=== PATIENT | female | born 1995 | race American Indian/Alaskan Native ===

== ENCOUNTER 2020-04-21 07:23 | Inpatient (IN) | payer MEDICAID ==
[2020-04-21] MEDS ORDERED: SODIUM CHLORIDE 0.9% 1000 ML 1,000 ML IV ONE ×3 (07:29→11:17)
--- NOTE | 2020-04-21 07:32 | Event Note ---
ED Screening Note Date of service: 04/21/20 Time: 07:31 ED Screening Note: 25-year-old female with no significant past medical history presents to the ER today with complaints of chest pain abdominal pain. She states that the pain started last week. She went to [facility] ER where they did CT scans, chest x-rays, EKG and blood work but nothing acute was found. Patient states that her pain worsened yesterday. This initial assessment/diagnostic orders/clinical plan/treatment(s) is/are subject to change based on patients health status, clinical progression and re- assessment by fellow clinical providers in the ED. Further treatment and workup at subsequent clinical providers discretion. Patient/guardian urged not to elope from the ED as their condition may be serious if not clinically assessed and managed. Initial orders include: Abdominal pain order set including chest x-ray, EKG and a troponin
[2020-04-21 08:07] LABS: Alanine Aminotransferase 25 units/L (7-56); Albumin 4.1 g/dL (3.9-5); BUN/Creatinine Ratio 11; Blood Urea Nitrogen 10 mg/dL (7-17); Calcium 8.8 mg/dL (8.4-10.2); Hemolysis Index 29
[2020-04-21 08:08] LABS: Bilirubin,Direct < 0.2 mg/dL (0-0.2)
[2020-04-21 08:13] LABS: Hematocrit 39.6 % (30.3-42.9); Hemoglobin 12.8 gm/dl (10.1-14.3); Mean Corpuscular HGB Conc 32 % (30-34); Mean Corpuscular Volume 87 fl (79-97); Platelet Count 269 K/mm3 (140-440); Red Blood Count 4.55 M/mm3 (3.65-5.03); Red Cell Distribution Width 14.3 % (13.2-15.2)
--- NOTE | 2020-04-21 09:18 | XRay Report ---
CHEST 1 VIEW 04/21/2020 9:05 AM INDICATION / CLINICAL INFORMATION: Chest pain/abd pain. COMPARISON: None available. FINDINGS: SUPPORT DEVICES: None. HEART / MEDIASTINUM: No significant abnormality. LUNGS / PLEURA: Clear lungs. No significant pleural effusion. No pneumothorax. ADDITIONAL FINDINGS: No significant additional findings. IMPRESSION: 1. No acute abnormality of the chest. Signer Name: Jairo Sweeney MD Signed: 04/21/2020 9:14 AM Workstation Name: [id number]
[2020-04-21] MEDS ORDERED: PANTOPRAZOLE 40 MG INJ IV ONE (09:40)
[2020-04-21] MEDS ORDERED: PIPERACILLIN/TAZOBACTAM 3.375 3.375 GM/50 ML BAG IV ONE (09:40)
[2020-04-21] MEDS ORDERED: MORPHINE 2 MG/1 ML INJ IV ONE ×3 (09:41→21:10)
[2020-04-21] MEDS ORDERED: ONDANSETRON 4 MG/2 ML INJ IV ONE (09:41)
[2020-04-21 10:03] LABS: Total Cells Counted 100
[2020-04-21 10:04] LABS: Platelet Estimate Consistent w Auto; RBC Morphology Normal
--- NOTE | 2020-04-21 10:26 | Cat Scan Report ---
CT abdomen pelvis w con INDICATION: MAIN. COMPARISON: None TECHNIQUE: Abdominal and pelvic CT exam performed. All CT scans at this location are performed using CT dose reduction for ALARA by means of automated exposure control. FINDINGS: CT ABDOMEN and PELVIS: Lung Bases: No significant abnormality. Liver: No significant abnormality. Biliary: No significant abnormality. Spleen: No significant abnormality. Pancreas: No significant abnormality. Adrenals: No significant abnormality. Kidneys: 2 mm left upper pole renal stone. No significant abnormality. Lymphatics: No lymphadenopathy. Vasculature: No significant abnormality. Bowel: There is mild short segment of bowel wall thickening involving the sigmoid colon and distal de scending colon. There is also a small short segment of small bowel bowel wall thickening seen within the pelvis (image 114 series 2.) Small quantity of fat stranding is seen within the pelvis. No perfor ation. No organized collection. Appendix is not visualized. Pelvis: Intrauterine device is in place. No significant abnormality. Osseous Structures: No aggressive osseous lesion. There is mild asymmetric sclerosis involving the ri ght iliac endplate of the sacroiliac joint on image 73 of series 601. Additional Findings: None IMPRESSION: 1. There is short segment bowel wall thickening involving the sigmoid colon and small bowel concernin g for enteritis/colitis. Given the skip lesions, Crohn's disease is a consideration. Additionally the re is mild right sacroiliitis which could be related to enteropathic sacroiliitis. Signer Name: Topher Teixeira MD Signed: 04/21/2020 10:21 AM Workstation Name: [id number]
--- NOTE | 2020-04-21 11:07 | Emergency Department Report ---
ED General Adult HPI - General Chief complaint: Abdominal Pain Stated complaint: CHEST PAIN/ABD PAIN Time Seen by Provider: 04/21/20 09:21 Source: patient Mode of arrival: Ambulatory Limitations: No Limitations - History of Present Illness Initial comments: This is a 25-year-old female with no prior GI or surgical history. She states that she has been having abdominal pain which is now diffuse since Wednesday. She is a bit of a poor historian and appears quite uncomfortable. She appears to be stating that the abdominal pain may have been more right-sided initially. She denies back pain. She denies diarrhea or signs of GI bleeding. She thinks that she might have had a chill but no fever. Patient states that she went to [facility] on Wednesday. She had an emergency department evaluation to include CT examination of her abdomen pelvis. She states that nothing abnormal was found. I have requested these records. Right after my initial assessment, an expedited CT of the abdomen and pelvis was ordered but the patient was significantly tender and tachycardic. Patient was given IV fluids Protonix and prophylactic antibiotics. See CT report for findings. -: Gradual, days(s) Location: abdomen Radiation: non-radiation Severity scale (0 -10): 10 Quality: aching Consistency: constant Improves with: none Worsens with: none Associated Symptoms: denies other symptoms (See HPI) Treatments Prior to Arrival: none - Related Data Previous Rx's Medication Instructions Recorded Last Taken Type Nitrofurantoin Spink/M-Cryst 100 mg PO Q12HR #14 capsule 10/18/19 Unknown Rx [Macrobid CAP] Phenazopyridine [Pyridium] 100 mg PO TID #6 tab 10/18/19 Unknown Rx Allergies Allergy/AdvReac Type Severity Reaction Status Date / Time No Known Allergies Allergy Unverified 10/18/19 09:37 ED Review of Systems ROS: Stated complaint: CHEST PAIN/ABD PAIN Other details as noted in HPI Constitutional: chills (Possible). denies: fever Eyes: denies: eye pain, vision change ENT: denies: ear pain, throat pain Respiratory: denies: cough, shortness of breath Cardiovascular: denies: chest pain, palpitations Endocrine: no symptoms reported Gastrointestinal: abdominal pain. denies: vomiting, diarrhea Genitourinary: denies: urgency, dysuria Musculoskeletal: denies: back pain, arthralgia Skin: denies: rash, lesions Neurological: denies: headache, weakness, paresthesias Psychiatric: denies: anxiety, depression Hematological/Lymphatic: denies: easy bleeding, easy bruising ED Past Medical Hx - Past Medical History Previous Medical History?: No - Surgical History Past Surgical History?: No - Social History Smoking Status: Never Smoker Substance Use Type: None - Medications Home Medications: Home Medications Medication Instructions Recorded Confirmed Last Taken Type Nitrofurantoin Spink/M-Cryst 100 mg PO Q12HR #14 capsule 10/18/19 Unknown Rx [Macrobid CAP] Phenazopyridine [Pyridium] 100 mg PO TID #6 tab 10/18/19 Unknown Rx ED Physical Exam - General Limitations: Physical Limitation General appearance: alert, in distress - Head Head exam: Present: atraumatic, normocephalic - Eye Eye exam: Present: normal appearance. Absent: scleral icterus - ENT ENT exam: Present: mucous membranes moist - Neck Neck exam: Present: normal inspection - Respiratory Respiratory exam: Present: normal lung sounds bilaterally. Absent: respiratory distress - Cardiovascular Cardiovascular Exam: Present: regular rate, tachycardia. Absent: systolic murmur, diastolic murmur, rubs, gallop - GI/Abdominal GI/Abdominal exam: Present: soft, distended, tenderness, guarding, rigid (Somewhat firm but not frankly rigid), normal bowel sounds. Absent: rebound (Difficult to assess), mass - Extremities Exam Extremities exam: Present: normal inspection - Back Exam Back exam: Present: normal inspection - Neurological Exam Neurological exam: Present: alert, oriented X3, CN II-XII intact. Absent: motor sensory deficit (As tested) - Psychiatric Psychiatric exam: Present: normal affect, normal mood - Skin Skin exam: Present: warm, dry, intact, normal color. Absent: rash ED Course Vital Signs 04/21/20 04/21/20 04/21/20 07:26 09:05 09:10 Temperature 97.2 F L Pulse Rate 118 H 108 H 111 H Respiratory 20 31 H 26 H Rate Blood Pressure 126/83 112/66 Blood Pressure 112/66 [Left] O2 Sat by Pulse 98 99 100 Oximetry 04/21/20 04/21/20 04/21/20 10:05 11:00 12:01 Temperature Pulse Rate 122 H 110 H 122 H Respiratory 29 H 29 H 25 H Rate Blood Pressure 127/70 127/70 127/70 Blood Pressure [Left] O2 Sat by Pulse 97 100 100 Oximetry - Reevaluation(s) Reevaluation #1: Patient received IV fluids and analgesia. Her CT showed enteritis and sacroiliitis. I suppose this most consistent with inflammatory bowel disease. Radiologist mentions Crohn's. She was also found to have significant pyuria. Initial antibiotic coverage was given previous CT (Zosyn). Blood cultures and urine cultures were obtained. I added Flagyl. Consult to GI. Case discussed with Dr. Mendes who was in the hospital and stated that he would see the patient. I went over the findings with hospitalist Dr. Flood who will be admitting the patient for further care and evaluation. 04/21/20 12:23 ED Medical Decision Making - Lab Data Result diagrams: 04/21/20 11:35 04/21/20 07:32 Laboratory Results - last 24 hr 04/21/20 04/21/20 04/21/20 07:32 07:32 07:32 WBC 14.3 H RBC 4.55 Hgb 12.8 Hct 39.6 MCV 87 MCH 28 MCHC 32 RDW 14.3 Plt Count 269 Add Manual Diff Complete Total Counted 100 Seg Neuts % (Manual) 72.0 H Band Neutrophils % 7.0 Lymphocytes % (Manual) 17.0 Monocytes % (Manual) 4.0 Nucleated RBC % Not Reportable Seg Neutrophils # Man 10.3 H Band Neutrophils # 1.0 Lymphocytes # (Manual) 2.4 Abs React Lymphs (Man) 0.0 Monocytes # (Manual) 0.6 Eosinophils # (Manual) 0.0 Basophils # (Manual) 0.0 Metamyelocytes # 0.0 Myelocytes # 0.0 Promyelocytes # 0.0 Blast Cells # 0.0 WBC Morphology Not Reportable Hypersegmented Neuts Not Reportable Hyposegmented Neuts Not Reportable Hypogranular Neuts Not Reportable Smudge Cells Not Reportable Toxic Granulation Not Reportable Toxic Vacuolation Not Reportable Dohle Bodies Not Reportable Pelger-Huet Anomaly Not Reportable Maty Rods Not Reportable Platelet Estimate Consistent w auto Clumped Platelets Not Reportable Plt Clumps, EDTA Not Reportable Large Platelets Not Reportable Giant Platelets Not Reportable Platelet Satelliting Not Reportable Plt Morphology Comment Not Reportable RBC Morphology Normal Dimorphic RBCs Not Reportable Polychromasia Not Reportable Hypochromasia Not Reportable Poikilocytosis Not Reportable Anisocytosis Not Reportable Microcytosis Not Reportable Macrocytosis Not Reportable Spherocytes Not Reportable Pappenheimer Bodies Not Reportable Sickle Cells Not Reportable Target Cells Not Reportable Tear Drop Cells Not Reportable Ovalocytes Not Reportable Helmet Cells Not Reportable [place] Bodies Not Reportable [place] Rings Not Reportable [place] Cells Not Reportable Bite Cells Not Reportable Crenated Cell Not Reportable Elliptocytes Not Reportable Acanthocytes (Spur) Not Reportable Rouleaux Not Reportable Hemoglobin C Crystals Not Reportable Schistocytes Not Reportable Malaria parasites Not Reportable Matthew Bodies Not Reportable Hem Pathologist Commnt No Sodium 136 L Potassium 3.7 Chloride 98.3 Carbon Dioxide 24 Anion Gap 17 BUN 10 Creatinine 0.9 Estimated GFR > 60 BUN/Creatinine Ratio 11 Glucose 94 Calcium 8.8 Total Bilirubin 0.70 Direct Bilirubin < 0.2 AST 27 ALT 25 Alkaline Phosphatase 75 Troponin T < 0.010 Total Protein 8.0 Albumin 4.1 Albumin/Globulin Ratio 1.1 Lipase 13 HCG, Qual 04/21/20 07:37 WBC RBC Hgb Hct MCV MCH MCHC RDW Plt Count Add Manual Diff Total Counted Seg Neuts % (Manual) Band Neutrophils % Lymphocytes % (Manual) Monocytes % (Manual) Nucleated RBC % Seg Neutrophils # Man Band Neutrophils # Lymphocytes # (Manual) Abs React Lymphs (Man) Monocytes # (Manual) Eosinophils # (Manual) Basophils # (Manual) Metamyelocytes # Myelocytes # Promyelocytes # Blast Cells # WBC Morphology Hypersegmented Neuts Hyposegmented Neuts Hypogranular Neuts Smudge Cells Toxic Granulation Toxic Vacuolation Dohle Bodies Pelger-Huet Anomaly Maty Rods Platelet Estimate Clumped Platelets Plt Clumps, EDTA Large Platelets Giant Platelets Platelet Satelliting Plt Morphology Comment RBC Morphology Dimorphic RBCs Polychromasia Hypochromasia Poikilocytosis Anisocytosis Microcytosis Macrocytosis Spherocytes Pappenheimer Bodies Sickle Cells Target Cells Tear Drop Cells Ovalocytes Helmet Cells [place] Bodies [place] Rings Lul Cells Bite Cells Crenated Cell Elliptocytes Acanthocytes (Spur) Rouleaux Hemoglobin C Crystals Schistocytes Malaria parasites Matthew Bodies Hem Pathologist Commnt Sodium Potassium Chloride Carbon Dioxide Anion Gap BUN Creatinine Estimated GFR BUN/Creatinine Ratio Glucose Calcium Total Bilirubin Direct Bilirubin AST ALT Alkaline Phosphatase Troponin T Total Protein Albumin Albumin/Globulin Ratio Lipase HCG, Qual Negative Laboratory Results - last 24 hr 04/21/20 04/21/20 04/21/20 07:32 07:32 07:32 WBC 14.3 H RBC 4.55 Hgb 12.8 Hct 39.6 MCV 87 MCH 28 MCHC 32 RDW 14.3 Plt Count 269 Add Manual Diff Complete Total Counted 100 Seg Neuts % (Manual) 72.0 H Band Neutrophils % 7.0 Lymphocytes % (Manual) 17.0 Monocytes % (Manual) 4.0 Nucleated RBC % Not Reportable Seg Neutrophils # Man 10.3 H Band Neutrophils # 1.0 Lymphocytes # (Manual) 2.4 Abs React Lymphs (Man) 0.0 Monocytes # (Manual) 0.6 Eosinophils # (Manual) 0.0 Basophils # (Manual) 0.0 Metamyelocytes # 0.0 Myelocytes # 0.0 Promyelocytes # 0.0 Blast Cells # 0.0 WBC Morphology Not Reportable Hypersegmented Neuts Not Reportable Hyposegmented Neuts Not Reportable Hypogranular Neuts Not Reportable Smudge Cells Not Reportable Toxic Granulation Not Reportable Toxic Vacuolation Not Reportable Dohle Bodies Not Reportable Pelger-Huet Anomaly Not Reportable Maty Rods Not Reportable Platelet Estimate Consistent w auto Clumped Platelets Not Reportable Plt Clumps, EDTA Not Reportable Large Platelets Not Reportable Giant Platelets Not Reportable Platelet Satelliting Not Reportable Plt Morphology Comment Not Reportable RBC Morphology Normal Dimorphic RBCs Not Reportable Polychromasia Not Reportable Hypochromasia Not Reportable Poikilocytosis Not Reportable Anisocytosis Not Reportable Microcytosis Not Reportable Macrocytosis Not Reportable Spherocytes Not Reportable Pappenheimer Bodies Not Reportable Sickle Cells Not Reportable Target Cells Not Reportable Tear Drop Cells Not Reportable Ovalocytes Not Reportable Helmet Cells Not Reportable [place] Bodies Not Reportable [place] Rings Not Reportable Lul Cells Not Reportable Bite Cells Not Reportable Crenated Cell Not Reportable Elliptocytes Not Reportable Acanthocytes (Spur) Not Reportable Rouleaux Not Reportable Hemoglobin C Crystals Not Reportable Schistocytes Not Reportable Malaria parasites Not Reportable Matthew Bodies Not Reportable Hem Pathologist Commnt No Sodium 136 L Potassium 3.7 Chloride 98.3 Carbon Dioxide 24 Anion Gap 17 BUN 10 Creatinine 0.9 Estimated GFR > 60 BUN/Creatinine Ratio 11 Glucose 94 Calcium 8.8 Total Bilirubin 0.70 Direct Bilirubin < 0.2 AST 27 ALT 25 Alkaline Phosphatase 75 Troponin T < 0.010 Total Protein 8.0 Albumin 4.1 Albumin/Globulin Ratio 1.1 Lipase 13 HCG, Qual Urine Color Urine Turbidity Urine pH Ur Specific [place] Urine Protein Urine Glucose (UA) Urine Ketones Urine Blood Urine Nitrite Urine Bilirubin Urine Urobilinogen Ur Leukocyte Esterase Urine WBC (Auto) Urine RBC (Auto) U Epithel Cells (Auto) Urine Mucus 04/21/20 04/21/20 07:37 Unknown WBC RBC Hgb Hct MCV MCH MCHC RDW Plt Count Add Manual Diff Total Counted Seg Neuts % (Manual) Band Neutrophils % Lymphocytes % (Manual) Monocytes % (Manual) Nucleated RBC % Seg Neutrophils # Man Band Neutrophils # Lymphocytes # (Manual) Abs React Lymphs (Man) Monocytes # (Manual) Eosinophils # (Manual) Basophils # (Manual) Metamyelocytes # Myelocytes # Promyelocytes # Blast Cells # WBC Morphology Hypersegmented Neuts Hyposegmented Neuts Hypogranular Neuts Smudge Cells Toxic Granulation Toxic Vacuolation Dohle Bodies Pelger-Huet Anomaly Maty Rods Platelet Estimate Clumped Platelets Plt Clumps, EDTA Large Platelets Giant Platelets Platelet Satelliting Plt Morphology Comment RBC Morphology Dimorphic RBCs Polychromasia Hypochromasia Poikilocytosis Anisocytosis Microcytosis Macrocytosis Spherocytes Pappenheimer Bodies Sickle Cells Target Cells Tear Drop Cells Ovalocytes Helmet Cells [place] Bodies [place] Rings Lul Cells Bite Cells Crenated Cell Elliptocytes Acanthocytes (Spur) Rouleaux Hemoglobin C Crystals Schistocytes Malaria parasites Matthew Bodies Hem Pathologist Commnt Sodium Potassium Chloride Carbon Dioxide Anion Gap BUN Creatinine Estimated GFR BUN/Creatinine Ratio Glucose Calcium Total Bilirubin Direct Bilirubin AST ALT Alkaline Phosphatase Troponin T Total Protein Albumin Albumin/Globulin Ratio Lipase HCG, Qual Negative Urine Color Yellow Urine Turbidity Slightly-cloudy Urine pH 6.0 Ur Specific [place] 1.034 H Urine Protein <15 mg/dl Urine Glucose (UA) Neg Urine Ketones Neg Urine Blood Sm Urine Nitrite Neg Urine Bilirubin Neg Urine Urobilinogen < 2.0 Ur Leukocyte Esterase Lg Urine WBC (Auto) > 182.0 H Urine RBC (Auto) 7.0 U Epithel Cells (Auto) 2.0 Urine Mucus Few - EKG Data -: EKG Interpreted by Me EKG shows normal: sinus rhythm, axis, intervals, QRS complexes, ST-T waves Rate: tachycardia - EKG Data Interpretation: nonspecific ST-T wave janet - Radiology Data Radiology results: image reviewed interpreted by me: Patient: CARLA PEREZ MR#: [id number] : 1995 Acct:[id number] Age/Sex: 25 / F ADM Date: 04/21/20 Loc: ED Attending Dr: Ordering Physician: SHERRELL SONG MD Date of Service: 04/21/20 Procedure(s): CT abdomen pelvis w con Accession Number(s): [id number] cc: SHERRELL SONG MD CT abdomen pelvis w con INDICATION: MAIN. COMPARISON: None TECHNIQUE: Abdominal and pelvic CT exam performed. All CT scans at this location are performed using CT dose reduction for ALARA by means of automated exposure control. FINDINGS: CT ABDOMEN and PELVIS: Lung Bases: No significant abnormality. Liver: No significant abnormality. Biliary: No significant abnormality. Spleen: No significant abnormality. Pancreas: No significant abnormality. Adrenals: No significant abnormality. Kidneys: 2 mm left upper pole renal stone. No significant abnormality. Lymphatics: No lymphadenopathy. Vasculature: No significant abnormality. Bowel: There is mild short segment of bowel wall thickening involving the sigmoid colon and distal descending colon. There is also a small short segment of small bowel bowel wall thickening seen within the pelvis (image 114 series 2.) Small quantity of fat stranding is seen within the pelvis. No perforation. No organized collection. Appendix is not visualized. Pelvis: Intrauterine device is in place. No significant abnormality. Osseous Structures: No aggressive osseous lesion. There is mild asymmetric sclerosis involving the right iliac endplate of the sacroiliac joint on image 73 of series 601. Additional Findings: None IMPRESSION: 1. There is short segment bowel wall thickening involving the sigmoid colon and small bowel concerning for enteritis/colitis. Given the skip lesions, Crohn's disease is a consideration. Additionally there is mild right sacroiliitis which could be related to enteropathic sacroiliitis. CT abdomen pelvis w con INDICATION: MAIN. COMPARISON: None TECHNIQUE: Abdominal and pelvic CT exam performed. All CT scans at this location are performed using CT dose reduction for ALARA by means of automated exposure control. FINDINGS: CT ABDOMEN and PELVIS: Lung Bases: No significant abnormality. Liver: No significant abnormality. Biliary: No significant abnormality. Spleen: No significant abnormality. Pancreas: No significant abnormality. Adrenals: No significant abnormality. Kidneys: 2 mm left upper pole renal stone. No significant abnormality. Lymphatics: No lymphadenopathy. Vasculature: No significant abnormality. Bowel: There is mild short segment of bowel wall thickening involving the sigmoid colon and distal descending colon. There is also a small short segment of small bowel bowel wall thickening seen within the pelvis (image 114 series 2.) Small quantity of fat stranding is seen within the pelvis. No perforation. No organized collection. Appendix is not visualized. Pelvis: Intrauterine device is in place. No significant abnormality. Osseous Structures: No aggressive osseous lesion. There is mild asymmetric sclerosis involving the right iliac endplate of the sacroiliac joint on image 73 of series 601. Additional Findings: None IMPRESSION: 1. There is short segment bowel wall thickening involving the sigmoid colon and small bowel concerning for enteritis/colitis. Given the skip lesions, Crohn's disease is a consideration. Additionally there is mild right sacroiliitis which could be related to enteropathic sacroiliitis. Signer Name: Topher Teixeira MD Signed: 04/21/2020 10:21 AM Workstation Name: [id number] Chest x-ray no acute process Critical care attestation.: If time is entered above; I have spent that time in minutes in the direct care of this critically ill patient, excluding procedure time. ED Disposition Clinical Impression: Enteritis, Sacroiliitis, Tachycardia Abdominal pain Qualifiers: Abdominal location: generalized Qualified Code(s): R10.84 - Generalized abdominal pain UTI (urinary tract infection) Qualifiers: Urinary tract infection type: site unspecified Hematuria presence: without hematuria Qualified Code(s): N39.0 - Urinary tract infection, site not specified Disposition: OP ADMIT IP TO THIS HOSP Is pt being admited?: Yes Does the pt Need Aspirin: No Condition: Stable Instructions: Abdominal Pain (ED) Referrals: PRIMARY CARE, [Primary Care Provider] - 3-5 Days Time of Disposition: 12:32
[2020-04-21 11:25] LABS: Bilirubin,Urine NEG (Negative); Blood,Urine SM (Negative); Color,Urine Yellow (Yellow); Mucus,Urine FEW /HPF; Protein,Urine <15 mg/dL mg/dL (Negative); Urobilinogen,Urine < 2.0 mg/dL (<2.0)
[2020-04-21] MEDS: SODIUM CHLORIDE 0.9% 1000 ML 1,000 ML IV ONE ×2 (11:25→14:46)
[2020-04-21 11:26] LABS: WBC,Urine > 182.0 /HPF (0.0-6.0)
[2020-04-21] MEDS: MORPHINE 2 MG/1 ML INJ IV ONE ×2 (11:37→16:40)
[2020-04-21 11:59] LABS: Hematocrit 35.5 % (30.3-42.9); Hemoglobin 11.9 gm/dl (10.1-14.3); Mean Corpuscular HGB Conc 34 % (30-34); Mean Corpuscular Volume 86 fl (79-97); Platelet Count 222 K/mm3 (140-440); Red Blood Count 4.13 M/mm3 (3.65-5.03); Red Cell Distribution Width 13.6 % (13.2-15.2)
[2020-04-21] MEDS ORDERED: metroNIDAZOLE/NS 500 MG/100 ML 500 MG/100 ML BAG IV ONE (12:13)
[2020-04-21] MEDS ORDERED: ONDANSETRON 4 MG/2 ML INJ IV PRN (12:19)
--- NOTE | 2020-04-21 12:25 | History and Physical Report ---
History of Present Illness Chief complaint: My stomach hurts History of present illness: 25 YO Female with No PMH presents to ED for evaluation. Pt reports" my stomach hurts." Patient states that she had experienced abdominal pain over the past 6 days with persistent symptoms over the same timeframe. Patient states that pain is 45/10, intermittent, not worsened with exertion, not relieved with rest. Patient states that the pain is diffuse but more prevalent on the right side. Patient transported to [facility] via private vehicle for further care and evaluation of the aforementioned symptoms. The patient was seen and evaluated in the emergency department. All lab and imaging studies reviewed. Patient underwent CT scan of the abdomen and pelvis which revealed evidence of colitis which is consistent with inflammatory bowel disease. Patient also found to have urinary tract infection complicated by systemic laboratory spine syndrome. Patient admitted to medical floor and initiated on IV antibiotic therapy due to increased risk of worsening symptoms. Gastroenterology team was consulted in ED. Patient denies nausea, fever, chills, chest pain, palpitation, productive cough, skin rash, recent ill contacts, ingestion of food/water from new or different sources, or known exposure to COVID-19, or known family history of inflammatory bowel disease. No prior admission for review. No medication listed at time of admission for reconciliation. Past History Past Medical History: No medical history, other (Reviewed) Past Surgical History: No surgical history, Other (Reviewed) Social history: single. denies: smoking, alcohol abuse, prescription drug abuse Family history: no significant family history, other (Reviewed) Medications and Allergies Allergies Allergy/AdvReac Type Severity Reaction Status Date / Time No Known Allergies Allergy Unverified 10/18/19 09:37 Home Medications Medication Instructions Recorded Confirmed Last Taken Type Nitrofurantoin [place]/M-Cryst 100 mg PO Q12HR #14 capsule 10/18/19 Unknown Rx [Macrobid CAP] Phenazopyridine [Pyridium] 100 mg PO TID #6 tab 10/18/19 Unknown Rx Active Meds: Active Medications Acetaminophen (Acetaminophen 325 Mg Tab) 650 mg PO Q4H PRN PRN Reason: Pain MILD(1-3)/Fever >100.5/ACOSTA Sodium Chloride (Nacl 0.9% 1000 Ml) 1,000 mls @ 125 mls/hr IV ONCE ONE Stop: 04/21/20 19:16 Last Admin: 04/21/20 11:24 Dose: 125 mls/hr Documented by: Sodium Chloride (Nacl 0.9% 1000 Ml) 1,000 mls @ 125 mls/hr IV ONCE ONE Stop: 04/21/20 19:01 Last Admin: 04/21/20 11:25 Dose: Not Given Documented by: Metronidazole (Flagyl 500 Mg/100 Ml) 500 mg in 100 mls @ 200 mls/hr IV ONCE ONE; Protocol Stop: 04/21/20 12:42 Sodium Chloride (Nacl 0.9% 1000 Ml) 1,000 mls @ 125 mls/hr IV DIRECT JONN Ondansetron HCl (Ondansetron 4 Mg/2 Ml Inj) 4 mg IV Q8H PRN PRN Reason: Nausea And Vomiting Sodium Chloride (Sodium Chloride 0.9% 10 Ml Flush Syringe) 10 ml IV BID JONN Sodium Chloride (Sodium Chloride 0.9% 10 Ml Flush Syringe) 10 ml IV PRN PRN PRN Reason: LINE FLUSH Review of Systems Constitutional: no weight loss, no weight gain, no fever, no chills Ears, nose, mouth and throat: no ear pain, no ear discharge, no decreased hearing, no nasal congestion, no nasal discharge Breasts: no change in shape, no swelling, no mass Cardiovascular: no chest pain, no orthopnea, no edema Respiratory: no cough, no excessive sputum, no hemoptysis, no shortness of breath Gastrointestinal: abdominal pain, no nausea, no vomiting, no diarrhea, no constipation, no BRBPR, no melena, no hematochezia Genitourinary Female: flank pain, no pelvic pain, no dysuria, no urinary frequency, no urgency Rectal: no pain, no incontinence, no bleeding Musculoskeletal: no neck stiffness, no neck pain, no arm numbness/tingling, no shooting leg pain, no leg numbness/tingling Integumentary: no rash, no pruritis, no redness, no sores, no wounds Neurological: no head injury, no transient paralysis, no weakness, no parathesias, no tingling, no ataxia Psychiatric: no anxiety, no memory loss, no sleep disturbances, no hypersomnia, no change in appetite, no change in libido Endocrine: no cold intolerance, no heat intolerance, no excessive thirst, no polydipsia, no polyuria, no nocturia, no weight change Hematologic/Lymphatic: no easy bruising, no easy bleeding, no lymphadenopathy Allergic/Immunologic: no urticaria, no wheezing, no anaphylaxis Exam - Constitutional Vitals: Temp Pulse Resp BP Pulse Ox 97.2 F L 122 H 25 H 127/70 100 04/21/20 07:26 04/21/20 12:01 04/21/20 12:01 04/21/20 12:01 04/21/20 12:01 General appearance: Present: mild distress - EENT Eyes: Present: PERRL ENT: hearing intact, clear oral mucosa - Neck Neck: Present: supple, normal ROM - Respiratory Respiratory effort: normal Respiratory: bilateral: CTA - Cardiovascular Heart Sounds: Present: S1 & S2. Absent: rub, click - Extremities Extremities: pulses symmetrical, No edema Peripheral Pulses: within normal limits - Abdominal General gastrointestinal: Present: soft, tender, non-distended, normal bowel sounds. Absent: hepatomegaly, splenomegaly, mass, hernia Localized gastrointestinal: tender: diffuse Female genitourinary: Present: normal - Integumentary Integumentary: Present: clear, warm, dry - Musculoskeletal Musculoskeletal: gait normal, strength equal bilaterally - Psychiatric Psychiatric: appropriate mood/affect, intact judgment & insight - Neurologic Neurologic: CNII-XII intact, moves all extremities HEART Score - HEART Score Troponin: Troponin T < 0.010 ng/mL (0.00-0.029) 04/21/20 07:32 Results - Labs CBC & Chem 7: 04/21/20 11:35 04/21/20 07:32 Labs: Abnormal lab results 04/21/20 04/21/20 04/21/20 Range/Units 07:32 07:32 Unknown WBC 14.3 H (4.5-11.0) K/mm3 Seg Neuts % (Manual) 72.0 H (40.0-70.0) % Seg Neutrophils # Man 10.3 H (1.8-7.7) K/mm3 Sodium 136 L (137-145) mmol/L Ur Specific [place] 1.034 H (1.003-1.030) Urine WBC (Auto) > 182.0 H (0.0-6.0) /HPF Assessment and Plan - Patient Problems (1) Systemic inflammatory response syndrome Current Visit: Yes Status: Acute Plan to address problem: CBC, CMP, urinalysis, IV antibiotic therapy, IV fluid resuscitation therapy. (2) Inflammatory bowel disease Current Visit: Yes Status: Acute Plan to address problem: GI team consulted, IV antibiotic therapy, serial abdominal exam, supportive ca re, further care and evaluation as per gastroenterology team. (3) Sacroiliitis Current Visit: Yes Status: Acute Plan to address problem: Tylenol as needed, NSAID therapy, supportive care. Continue medical management. (4) UTI (urinary tract infection) Current Visit: Yes Status: Acute Qualifiers: Urinary tract infection type: site unspecified Hematuria presence: without hematuria Qualified Code(s): N39.0 - Urinary tract infection, site not specified Plan to address problem: CBC, CMP, urinalysis, IV antibiotic therapy, (5) DVT prophylaxis Current Visit: Yes Status: Acute Plan to address problem: SCD to bilateral lower extremities while in bed, patient is ambulatory.
[2020-04-21] MEDS: cefTRIAXone/NS 1 GM/50 ML 1 GM/50 ML BAG IV SCH (13:20)
[2020-04-21 15:46] LABS: RBC Morphology Normal; Total Cells Counted 100
[2020-04-21] MEDS ORDERED: MORPHINE 2 MG/1 ML INJ ONE (16:30)
[2020-04-21] MEDS: ACETAMINOPHEN 325 MG TAB PO PRN (20:04)
[2020-04-21] MEDS: SODIUM CHLORIDE 0.9% 1000 ML 1,000 ML IV SCH (22:48)
[2020-04-22 04:36] LABS: Basophils % (Auto) 0.3 % (0.0-1.8); Eosinophils # (Auto) 0.1 K/mm3 (0.0-0.4); Hematocrit 32.2 % (30.3-42.9); Hemoglobin 10.7 gm/dl (10.1-14.3); Lymphocytes # (Auto) 1.9 K/mm3 (1.2-5.4); Lymphocytes % (Auto) 14.9 % (13.4-35.0); Mean Corpuscular HGB Conc 33 % (30-34); Mean Corpuscular Volume 87 fl (79-97); Monocytes # (Auto) 0.6 K/mm3 (0.0-0.8); Monocytes % (Auto) 4.7 % (0.0-7.3); Platelet Count 207 K/mm3 (140-440); Red Blood Count 3.72 M/mm3 (3.65-5.03); Red Cell Distribution Width 13.6 % (13.2-15.2)
[2020-04-22 04:57] LABS: BUN/Creatinine Ratio 11; Blood Urea Nitrogen 9 mg/dL (7-17); Calcium 7.4 mg/dL (8.4-10.2); Hemolysis Index 6
[2020-04-22] MEDS: SODIUM CHLORIDE 0.9% 1000 ML 1,000 ML IV SCH (06:07)
[2020-04-22] MEDS: HYDROmorphone 1 MG/1 ML INJ IV PRN ×3 (11:29→23:57)
--- NOTE | 2020-04-22 13:41 | Consultation ---
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 She came to the emergency room complaining of abdominal pain going on for 1 week intermittently. She had a CT scan performed which showed a short segment of her small bowel as well as of her sigmoid colon that were thickened. The diagnosis of Crohn's disease was raised as a possibility and the patient was admitted for further evaluation. Patient has a history of anxiety and is on medications though she cannot recall what. Her anxiety symptoms are manifested by palpitations and panic attacks with chest pain at times. Her bowel movements are usually regular on a daily basis. She denies any GI bleeding. Over the last week, her bowel movements have varied from loose to solid. She defines her abdominal pain as a generalized crampy discomfort. Pain started on April 16, and she was seen at the [facility] emergency room on April 17 where she had normal CBC and CMP. She also had a CT of the abdomen and pelvis performed there which was normal. She denies any family history of inflammatory bowel disease. She has no mouth sores or joint swelling. There is no history of fevers chills sweats nausea or vomiting. She did however have a temperature of 101.3 here in the hospital last night. She denies any unusual food ingestions. Meds reviewed. Past History Past Medical History: No medical history, other (Anxiety Disorder) Past Surgical History: No surgical history, Other (Child x 3) Social history: single. denies: smoking, alcohol abuse, prescription drug abuse Family history: no significant family history, other (Reviewed) Medications and Allergies Allergies Allergy/AdvReac Type Severity Reaction Status Date / Time No Known Allergies Allergy Unverified 10/18/19 09:37 Home Medications Medication Instructions Recorded Confirmed Last Taken Type Nitrofurantoin [place]/M-Cryst 100 mg PO Q12HR #14 capsule 10/18/19 Unknown Rx [Macrobid CAP] Phenazopyridine [Pyridium] 100 mg PO TID #6 tab 10/18/19 Unknown Rx Active Meds: Active Medications Acetaminophen (Acetaminophen 325 Mg Tab) 650 mg PO Q4H PRN PRN Reason: Pain MILD(1-3)/Fever >100.5/ACOSTA Last Admin: 04/21/20 20:04 Dose: 650 mg Documented by: Hydromorphone HCl (Hydromorphone 1 Mg/1 Ml Inj) 1 mg IV Q3H PRN PRN Reason: Pain , Severe (7-10) Last Admin: 04/22/20 11:29 Dose: 1 mg Documented by: Sodium Chloride (Nacl 0.9% 1000 Ml) 1,000 mls @ 125 mls/hr IV DIRECT JONN Last Admin: 04/22/20 06:07 Dose: 125 mls/hr Documented by: Ceftriaxone Sodium (Rocephin/Ns 1 Gm/50 Ml) 1 gm in 50 mls @ 100 mls/hr IV Q24H JONN; Protocol Last Admin: 04/21/20 13:20 Dose: 100 mls/hr Documented by: Ondansetron HCl (Ondansetron 4 Mg/2 Ml Inj) 4 mg IV Q8H PRN PRN Reason: Nausea And Vomiting Sodium Chloride (Sodium Chloride 0.9% 10 Ml Flush Syringe) 10 ml IV BID JONN Last Admin: 04/22/20 11:30 Dose: 10 ml Documented by: Sodium Chloride (Sodium Chloride 0.9% 10 Ml Flush Syringe) 10 ml IV PRN PRN PRN Reason: LINE FLUSH Review of Systems All systems: negative (as per HPI) Exam - Constitutional Vitals: Temp Pulse Resp BP Pulse Ox 98.9 F 94 H 18 115/69 94 04/22/20 11:38 04/22/20 11:38 04/22/20 11:38 04/22/20 11:38 04/22/20 11:38 General appearance: Present: no acute distress - EENT Eyes: Present: PERRL, EOM intact ENT: hearing intact - Respiratory Respiratory effort: normal Respiratory: bilateral: CTA - Cardiovascular Rhythm: regular Heart Sounds: Present: S1 & S2 - Extremities Extremities: No edema - Abdominal General gastrointestinal: Present: soft, tender (Mild, diffuse) Results - Labs CBC & Chem 7: 04/22/20 04:21 04/22/20 04:21 Labs: Abnormal lab results 04/21/20 04/22/20 04/22/20 Range/Units 11:35 04:21 04:21 WBC 12.5 H (4.5-11.0) K/mm3 Seg Neutrophils % 79.1 H (40.0-70.0) % Seg Neuts % (Manual) 90.0 H (40.0-70.0) % Lymphocytes % (Manual) 6.0 L (13.4-35.0) % Seg Neutrophils # 9.9 H (1.8-7.7) K/mm3 Seg Neutrophils # Man 8.0 H (1.8-7.7) K/mm3 Lymphocytes # (Manual) 0.5 L (1.2-5.4) K/mm3 Calcium 7.4 L D (8.4-10.2) mg/dL - Imaging and Cardiology CT scan - abdomen: report reviewed (as per HPI) Assessment and Plan 1. Abd pain/abnormal CT scan - findings most c/w transient infectious process, given abd pain, enteric and colonic segments of possible inflammation, fever, and mildly elevated WBC. Symptoms exacerbated by anxiety disorder. No indication of IBD at this point, and symptoms of too short a duration to consider that at present. - adv diet - Levsin or Librax (BID) for pain and GI symptoms - may give oral abx and discharge when appropriate symptomatically
[2020-04-22] MEDS ORDERED: HYOSCYAMINE SUBL 0.125 MG TAB SL PRN (14:00)
[2020-04-22] MEDS: cefTRIAXone/NS 1 GM/50 ML 1 GM/50 ML BAG IV SCH (14:14)
[2020-04-22] MEDS: ACETAMINOPHEN 325 MG TAB PO PRN (18:39)
--- NOTE | 2020-04-22 18:48 | Progress Note ---
Assessment and Plan - Patient Problems (1) SIRS (systemic inflammatory response syndrome) Current Visit: Yes Status: Acute Plan to address problem: Patient is tachycardic and and tachypneic which is slightly improving patient is slightly elevated white count On IV Rocephin (2) Enteritis Current Visit: Yes Status: Acute Plan to address problem: Per GI " Abd pain/abnormal CT scan - findings most c/w transient infectious process, given abd pain, enteric and colonic segments of possible inflammation, fever, and mildly elevated WBC. Symptoms exacerbated by anxiety disorder. No indication of IBD at this point, and symptoms of too short a duration to consider that at present. - adv diet - Levsin or Librax (BID) for pain and GI symptoms - may give oral abx and discharge when appropriate symptomatically" Patient still symptomatic Discharge tomorrow if asymptomatic Levsin than started (3) Sacroiliitis Current Visit: Yes Status: Acute Plan to address problem: Low-dose prednisone for now (4) UTI (urinary tract infection) Current Visit: Yes Status: Acute Plan to address problem: On ceftriaxone Urine WBC more than 182 (5) DVT prophylaxis Current Visit: Yes Status: Acute Plan to address problem: On SCDs and GI prophylaxis Subjective Date of service: 04/22/20 Principal diagnosis: Acute abdominal pain, enteritis Interval history: 25 YO Female with No PMH presents to ED for evaluation. Pt reports" my stomach hurts." Patient states that she had experienced abdominal pain over the past 6 days with persistent symptoms over the same timeframe. Patient states that pain is 45/10, intermittent, not worsened with exertion, not relieved with rest. Patient states that the pain is diffuse but more prevalent on the right side. Patient transported to [facility] via private vehicle for further care and evaluation of the aforementioned symptoms. The patient was seen and evaluated in the emergency department. All lab and imaging studies reviewed. Patient underwent CT scan of the abdomen and pelvis which revealed evidence of colitis which is consistent with inflammatory bowel disease. Patient also found to have urinary tract infection complicated by systemic laboratory spine syndrome. Patient admitted to medical floor and initiated on IV antibiotic therapy due to increased risk of worsening symptoms. Gastroenterology team was consulted in ED. Patient denies nausea, fever, chills, chest pain, palpitation, productive cough, skin rash, recent ill contacts, ingestion of food/water from new or different sources, or known exposure to COVID-19, or known family history of inflammatory bowel disease. No prior admission for review. No medication lis tylor at time of admission for reconciliation. Day #2 04/22/2020 Patient still has abdominal pain GI consult appreciated Objective - Constitutional Vitals: Vital Signs - 12hr 04/22/20 04/22/20 04/22/20 08:03 11:38 16:00 Temperature 98.2 F 98.9 F 98.6 F Pulse Rate 85 94 H 88 Respiratory 18 18 18 Rate Blood Pressure 104/54 115/69 Blood Pressure 118/68 [Left] O2 Sat by Pulse 100 94 98 Oximetry General appearance: Present: mild distress (Secondary to pain), well-nourished - EENT Eyes: PERRL, EOM intact ENT: hearing intact, clear oral mucosa Ears: bilateral: normal - Neck Neck: supple, normal ROM - Respiratory Respiratory effort: normal Respiratory: bilateral: CTA - Breasts Breasts: normal - Cardiovascular Heart rate: 78 Rhythm: regular Heart Sounds: Present: S1 & S2. Absent: gallop, rub Extremities: pulses intact, No edema, normal color, Full ROM - Gastrointestinal General gastrointestinal: Present: soft, tender, non-distended, normal bowel sounds Localized gastrointestinal: tender: diffuse (No guarding) - Genitourinary Female genitourinary: normal - Integumentary Integumentary: clear, warm, dry - Musculoskeletal Musculoskeletal: 1, strength equal bilaterally - Neurologic Neurologic: moves all extremities - Psychiatric Psychiatric: memory intact, appropriate mood/affect, intact judgment & insight - Allied health notes Allied health notes reviewed: nursing, case management - Labs CBC & Chem 7: 04/22/20 04:21 04/22/20 04:21 Labs: Abnormal lab results 04/22/20 04/22/20 Range/Units 04:21 04:21 WBC 12.5 H (4.5-11.0) K/mm3 Seg Neutrophils % 79.1 H (40.0-70.0) % Seg Neutrophils # 9.9 H (1.8-7.7) K/mm3 Calcium 7.4 L D (8.4-10.2) mg/dL HEART Score - HEART Score Troponin: Troponin T < 0.010 ng/mL (0.00-0.029) 04/21/20 07:32
[2020-04-23 07:56] VITALS: BP 115/70
--- NOTE | 2020-04-23 09:20 | Progress Note ---
Assessment and Plan Assessment and plan: (1) SIRS (systemic inflammatory response syndrome) Current Visit: Yes Status: Acute Plan to address problem: Patient is tachycardic and and tachypneic which is slightly improving patient is slightly elevated white count On IV Rocephin (2) Enteritis Current Visit: Yes Status: Acute Plan to address problem: Per GI " Abd pain/abnormal CT scan - findings most c/w transient infectious process, given abd pain, enteric and colonic segments of possible inflammation, fever, and mildly elevated WBC. Symptoms exacerbated by anxiety disorder. No indication of IBD at this point, and symptoms of too short a duration to consider that at present. - adv diet - Levsin or Librax (BID) for pain and GI symptoms - may give oral abx and discharge when appropriate symptomatically" Patient still symptomatic Discharge tomorrow if asymptomatic Levsin than started (3) Sacroiliitis Current Visit: Yes Status: Acute Plan to address problem: Low-dose prednisone for now (4) UTI (urinary tract infection) Current Visit: Yes Status: Acute Plan to address problem: On ceftriaxone Urine WBC more than 182 (5) DVT prophylaxis Current Visit: Yes Status: Acute Plan to address problem: On SCDs and GI prophylaxis Subjective Date of service: 04/22/20 Principal diagnosis: Acute abdominal pain, enteritis Interval history: 25 YO Female with No PMH presents to ED for evaluation. Pt reports" my stomach hurts." Patient states that she had experienced abdominal pain over the past 6 days with persistent symptoms over the same timeframe. Patient states that pain is 45/10, intermittent, not worsened with exertion, not relieved with rest. Patient states that the pain is diffuse but more prevalent on the right side. Patient transported to [facility] via private vehicle for further care and evaluation of the aforementioned symptoms. The patient was seen and evaluated in the emergency department. All lab and imaging studies reviewed. Patient underwent CT scan of the abdomen and pelvis which revealed evidence of colitis which is consistent with inflammatory bowel disease. Patient also found to have urinary tract infection complicated by systemic laboratory spine syndrome. Patient admitted to medical floor and initiated on IV antibiotic therapy due to increased risk of worsening symptoms. Gastroenterology team was consulted in ED. Patient denies nausea, fever, chills, chest pain, palpitation, productive cough, skin rash, recent ill contacts, ingestion of food/water from new or different sources, or known exposure to COVID-19, or known family history of inflammatory bowel disease. No prior admission for review. No medication listed at time of admission for reconciliation. Day #2 04/22/2020 Patient still has abdominal pain GI consult appreciated 04/23/2020 -Patient is still complaining abdominal pain, patient was evaluated by Cinthya yesterday and he does not think patient has Crohn's disease, based on patient's symptoms and previous imaging studies from [facility]. He recommended antibiotics. Patient wants second opinion but we don't have another group coming here. I have discussed with the patient extensively and she is agreed with discharge with antibiotic and pain medicine and she will follow with GI at [facility] as an outpatient. History Interval history: Patient was seen and evaluated this morning Patient is complaining abdominal pain Hospitalist Physical - Physical exam Narrative exam: Not in cardiopulmonary distress. The patient appeared well nourished and normally developed. Vital signs as documented. Head exam is unremarkable. No scleral icterus . Neck is without jugular venous distension, thyromegaly, or carotid bruits. Lungs are clear to auscultation. Cardiac exam reveals regular rate and Rhythm. Abdominal exam reveals normal bowel sounds, nontender, no organomegaly. Extremities are nonedematous and both femoral and pedal pulses are normal. 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 No focal weakness. - Constitutional Vitals: Temp Pulse Resp BP Pulse Ox 98.3 F 87 16 115/70 98 04/23/20 06:53 04/23/20 06:53 04/23/20 06:53 04/23/20 06:53 04/23/20 06:53 General appearance: Present: mild distress (Secondary to pain), well-nourished HEART Score - HEART Score Troponin: Troponin T < 0.010 ng/mL (0.00-0.029) 04/21/20 07:32 Results - Labs CBC & Chem 7: 04/22/20 04:21 04/22/20 04:21 Labs: Laboratory Last Values WBC 12.5 K/mm3 (4.5-11.0) H 04/22/20 04:21 RBC 3.72 M/mm3 (3.65-5.03) 04/22/20 04:21 Hgb 10.7 gm/dl (10.1-14.3) 04/22/20 04:21 Hct 32.2 % (30.3-42.9) 04/22/20 04:21 MCV 87 fl (79-97) 04/22/20 04:21 MCH 29 pg (28-32) 04/22/20 04:21 MCHC 33 % (30-34) 04/22/20 04:21 RDW 13.6 % (13.2-15.2) 04/22/20 04:21 Plt Count 207 K/mm3 (140-440) 04/22/20 04:21 Lymph % (Auto) 14.9 % (13.4-35.0) 04/22/20 04:21 [place] % (Auto) 4.7 % (0.0-7.3) 04/22/20 04:21 Eos % (Auto) 1.0 % (0.0-4.3) 04/22/20 04:21 Baso % (Auto) 0.3 % (0.0-1.8) 04/22/20 04:21 Lymph # (Auto) 1.9 K/mm3 (1.2-5.4) 04/22/20 04:21 [place] # (Auto) 0.6 K/mm3 (0.0-0.8) 04/22/20 04:21 Eos # (Auto) 0.1 K/mm3 (0.0-0.4) 04/22/20 04:21 Baso # (Auto) 0.0 K/mm3 (0.0-0.1) 04/22/20 04:21 Add Manual Diff Complete 04/21/20 11:35 Total Counted 100 04/21/20 11:35 Seg Neutrophils % 79.1 % (40.0-70.0) H 04/22/20 04:21 Seg Neuts % (Manual) 90.0 % (40.0-70.0) H 04/21/20 11:35 Band Neutrophils % 7.0 % 04/21/20 07:32 Lymphocytes % (Manual) 6.0 % (13.4-35.0) L 04/21/20 11:35 Monocytes % (Manual) 4.0 % (0.0-7.3) 04/21/20 11:35 Nucleated RBC % Not Reportable 04/21/20 11:35 Seg Neutrophils # 9.9 K/mm3 (1.8-7.7) H 04/22/20 04:21 Seg Neutrophils # Man 8.0 K/mm3 (1.8-7.7) H 04/21/20 11:35 Band Neutrophils # 0.0 K/mm3 04/21/20 11:35 Lymphocytes # (Manual) 0.5 K/mm3 (1.2-5.4) L 04/21/20 11:35 Abs React Lymphs (Man) 0.0 K/mm3 04/21/20 11:35 Monocytes # (Manual) 0.4 K/mm3 (0.0-0.8) 04/21/20 11:35 Eosinophils # (Manual) 0.0 K/mm3 (0.0-0.4) 04/21/20 11:35 Basophils # (Manual) 0.0 K/mm3 (0.0-0.1) 04/21/20 11:35 Metamyelocytes # 0.0 K/mm3 04/21/20 11:35 Myelocytes # 0.0 K/mm3 04/21/20 11:35 Promyelocytes # 0.0 K/mm3 04/21/20 11:35 Blast Cells # 0.0 K/mm3 04/21/20 11:35 WBC Morphology Not Reportable 04/21/20 11:35 Hypersegmented Neuts Not Reportable 04/21/20 11:35 Hyposegmented Neuts Not Reportable 04/21/20 11:35 Hypogranular Neuts Not Reportable 04/21/20 11:35 Smudge Cells Not Reportable 04/21/20 11:35 Toxic Granulation Not Reportable 04/21/20 11:35 Toxic Vacuolation Not Reportable 04/21/20 11:35 Dohle Bodies Not Reportable 04/21/20 11:35 Pelger-Huet Anomaly Not Reportable 04/21/20 11:35 Maty Rods Not Reportable 04/21/20 11:35 Platelet Estimate Not Reportable 04/21/20 11:35 Clumped Platelets Not Reportable 04/21/20 11:35 Plt Clumps, EDTA Not Reportable 04/21/20 11:35 Large Platelets Not Reportable 04/21/20 11:35 Giant Platelets Not Reportable 04/21/20 11:35 Platelet Satelliting Not Reportable 04/21/20 11:35 Plt Morphology Comment Not Reportable 04/21/20 11:35 RBC Morphology Normal 04/21/20 11:35 Dimorphic RBCs Not Reportable 04/21/20 11:35 Polychromasia Not Reportable 04/21/20 11:35 Hypochromasia Not Reportable 04/21/20 11:35 Poikilocytosis Not Reportable 04/21/20 11:35 Anisocytosis Not Reportable 04/21/20 11:35 Microcytosis Not Reportable 04/21/20 11:35 Macrocytosis Not Reportable 04/21/20 11:35 Spherocytes Not Reportable 04/21/20 11:35 Pappenheimer Bodies Not Reportable 04/21/20 11:35 Sickle Cells Not Reportable 04/21/20 11:35 Target Cells Not Reportable 04/21/20 11:35 Tear Drop Cells Not Reportable 04/21/20 11:35 Ovalocytes Not Reportable 04/21/20 11:35 Helmet Cells Not Reportable 04/21/20 11:35 [place] Bodies Not Reportable 04/21/20 11:35 [place] Rings Not Reportable 04/21/20 11:35 Lul Cells Not Reportable 04/21/20 11:35 Bite Cells Not Reportable 04/21/20 11:35 Crenated Cell Not Reportable 04/21/20 11:35 Elliptocytes Not Reportable 04/21/20 11:35 Acanthocytes (Spur) Not Reportable 04/21/20 11:35 Rouleaux Not Reportable 04/21/20 11:35 Hemoglobin C Crystals Not Reportable 04/21/20 11:35 Schistocytes Not Reportable 04/21/20 11:35 Malaria parasites Not Reportable 04/21/20 11:35 Matthew Bodies Not Reportable 04/21/20 11:35 Hem Pathologist Commnt No 04/21/20 11:35 Sodium 138 mmol/L (137-145) 04/22/20 04:21 Potassium 3.8 mmol/L (3.6-5.0) 04/22/20 04:21 Chloride 105.9 mmol/L (98-107) 04/22/20 04:21 Carbon Dioxide 23 mmol/L (22-30) 04/22/20 04:21 Anion Gap 13 mmol/L 04/22/20 04:21 BUN 9 mg/dL (7-17) 04/22/20 04:21 Creatinine 0.8 mg/dL (0.6-1.2) 04/22/20 04:21 Estimated GFR > 60 ml/min 04/22/20 04:21 BUN/Creatinine Ratio 11 % 04/22/20 04:21 Glucose 83 mg/dL (65-100) 04/22/20 04:21 Lactic Acid 1.60 mmol/L (0.7-2.0) 04/21/20 12:15 Calcium 7.4 mg/dL (8.4-10.2) L D 04/22/20 04:21 Total Bilirubin 0.70 mg/dL (0.1-1.2) 04/21/20 07:32 Direct Bilirubin < 0.2 mg/dL (0-0.2) 04/21/20 07:32 AST 27 units/L (5-40) 04/21/20 07:32 ALT 25 units/L (7-56) 04/21/20 07:32 Alkaline Phosphatase 75 units/L (35-129) 04/21/20 07:32 Troponin T < 0.010 ng/mL (0.00-0.029) 04/21/20 07:32 Total Protein 8.0 g/dL (6.3-8.2) 04/21/20 07:32 Albumin 4.1 g/dL (3.9-5) 04/21/20 07:32 Albumin/Globulin Ratio 1.1 % 04/21/20 07:32 Lipase 13 units/L (13-60) 04/21/20 07:32 HCG, Qual Negative (Negative) 04/21/20 07:37 Urine Color Yellow (Yellow) 04/21/20 Unknown Urine Turbidity Slightly-cloudy (Clear) 04/21/20 Unknown Urine pH 6.0 (5.0-7.0) 04/21/20 Unknown Ur Specific [place] 1.034 (1.003-1.030) H 04/21/20 Unknown Urine Protein <15 mg/dl mg/dL (Negative) 04/21/20 Unknown Urine Glucose (UA) Neg mg/dL (Negative) 04/21/20 Unknown Urine Ketones Neg mg/dL (Negative) 04/21/20 Unknown Urine Blood Sm (Negative) 04/21/20 Unknown Urine Nitrite Neg (Negative) 04/21/20 Unknown Urine Bilirubin Neg (Negative) 04/21/20 Unknown Urine Urobilinogen < 2.0 mg/dL (<2.0) 04/21/20 Unknown Ur Leukocyte Esterase Lg (Negative) 04/21/20 Unknown Urine WBC (Auto) > 182.0 /HPF (0.0-6.0) H 04/21/20 Unknown Urine RBC (Auto) 7.0 /HPF (0.0-6.0) 04/21/20 Unknown U Epithel Cells (Auto) 2.0 /HPF (0-13.0) 04/21/20 Unknown Urine Mucus Few /HPF 04/21/20 Unknown Microbiology: Microbiology 04/21/20 Unknown Urine,Clean Catch Urine Culture - Preliminary NO GROWTH AFTER 24 HOURS 04/21/20 12:26 Peripheral/Venous Blood Culture - Preliminary NO GROWTH AFTER 24 HOURS 04/21/20 12:15 Peripheral/Venous Blood Culture - Preliminary NO GROWTH AFTER 24 HOURS Shin/IV: Voiding Method Toilet Active Medications - Current Medications Current Medications: Generic Name Dose Route Start Last Admin Trade Name Freq PRN Reason Stop Dose Admin Acetaminophen 650 mg 04/21/20 12:19 04/22/20 18:39 Acetaminophen 325 Mg Tab PO 650 mg Q4H PRN Administration Pain MILD(1-3)/Fever >100.5/ACOSTA Hydromorphone HCl 1 mg 04/22/20 11:00 04/22/20 23:57 Hydromorphone 1 Mg/1 Ml Inj IV 1 mg Q3H PRN Administration Pain , Severe (7-10) Hyoscyamine 0.125 mg 04/22/20 14:00 04/22/20 22:30 Hyoscyamine Subl 0.125 Mg Tab SL 0.125 mg Q4H PRN Administration Spasms Sodium Chloride 1,000 mls @ 125 mls/hr 04/21/20 12:30 04/22/20 06:07 Nacl 0.9% 1000 Ml IV 125 mls/hr DIRECT JONN Administration Ceftriaxone Sodium 1 gm in 50 mls @ 100 mls/hr 04/21/20 13:00 04/22/20 14:14 Rocephin/Ns 1 Gm/50 Ml IV 100 mls/hr Q24H JONN Administration Protocol Ondansetron HCl 4 mg 04/21/20 12:19 Ondansetron 4 Mg/2 Ml Inj IV Q8H PRN Nausea And Vomiting Sodium Chloride 10 ml 04/21/20 22:00 04/23/20 01:35 Sodium Chloride 0.9% 10 Ml Flush Syringe IV Not Given BID JONN Sodium Chloride 10 ml 04/21/20 12:19 Sodium Chloride 0.9% 10 Ml Flush Syringe IV PRN PRN LINE FLUSH
--- NOTE | 2020-04-23 13:38 | Discharge Summary ---
Providers - Providers Date of Admission: 04/21/20 16:23 Date of discharge: 04/23/20 Attending physician: SILVIA SCOTT MD 04/21/20 10:57 Consult to Physician [CONS] Urgent Comment: Consulting Provider: BARBARA CORRIGAN Physician Instructions: Reason For Exam: enteritis, sacroiliitis Primary care physician: MED SPA MANAGER Hospitalization Reason for admission: Abdominal pain, UTI Condition: Stable Hospital course: History of present illness: 25 YO Female with No PMH presents to ED for evaluation. Pt reports" my stomach hurts." Patient states that she had experienced abdominal pain over the past 6 days with persistent symptoms over the same timeframe. Patient states that pain is 45/10, intermittent, not worsened with exertion, not relieved with rest. Patient states that the pain is diffuse but more prevalent on the right side. Patient transported to [facility] via private vehicle for further care and evaluation of the aforementioned symptoms. The patient was seen and evaluated in the emergency department. All lab and imaging studies reviewed. Patient underwent CT scan of the abdomen and pelvis which revealed evidence of colitis which is consistent with inflammatory bowel disease. Patient also found to have urinary tract infection complicated by systemic laboratory spine syndrome. Patient admitted to medical floor and initiated on IV antibiotic therapy due to increased risk of worsening symptoms. Gastroenterology team was consulted in ED. Patient denies nausea, fever, chills, chest pain, palpitation, productive cough, skin rash, recent ill contacts, ingestion of food/water from new or different sources, or known exposure to COVID-19, or known family history of inflammatory bowel disease. No prior admission for review. No medication listed at time of admission for reconciliation. Hospital course (1) SIRS (systemic inflammatory response syndrome) Current Visit: Yes Status: Acute Plan to address problem: Patient is tachycardic and and tachypneic which is slightly improving patient is slightly elevated white count On IV Rocephin (2) Enteritis Current Visit: Yes Status: Acute Plan to address problem: Per GI " Abd pain/abnormal CT scan - findings most c/w transient infectious process, given abd pain, enteric and colonic segments of possible inflammation, fever, and mildly elevated WBC. Symptoms exacerbated by anxiety disorder. No indication of IBD at this point, and symptoms of too short a duration to consider that at present. - adv diet - Levsin or Librax (BID) for pain and GI symptoms - may give oral abx and discharge when appropriate symptomatically" Patient still symptomatic Discharge tomorrow if asymptomatic Levsin than started (3) Sacroiliitis Current Visit: Yes Status: Acute Plan to address problem: Low-dose prednisone for now (4) UTI (urinary tract infection) Current Visit: Yes Status: Acute Plan to address problem: On ceftriaxone Urine WBC more than 182 (5) DVT prophylaxis Current Visit: Yes Status: Acute Plan to address problem: On SCDs and GI prophylaxis Day #2 04/22/2020 Patient still has abdominal pain GI consult appreciated 04/23/2020 -Patient is still complaining abdominal pain, patient was evaluated by Cinthya yesterday and he does not think patient has Crohn's disease, based on patient's symptoms and previous imaging studies from [facility]. He recommended antibiotics. Patient wants second opinion but we don't have another group coming here. I have discussed with the patient extensively and she is agreed with discharge with antibiotic and pain medicine and she will follow with GI at [facility] as an outpatient. Patient has lorazepam 60 tablets that was ordered recently do not give her narcotics on top of that. I gave her prescription for Augmentin for 5 days and Levsin sublingual for GI recommendation. I have discussed the management plan in detail with the patient. Disposition: DC-01 TO HOME OR SELFCARE Time spent for discharge: 32 minutes - Discharge Diagnoses (1) UTI (urinary tract infection) Status: Acute (2) Abdominal pain Status: Acute Qualifiers: Abdominal location: generalized Qualified Code(s): R10.84 - Generalized abdominal pain (3) Enteritis Status: Acute Core Measure Documentation - Palliative Care Palliative Care/ Comfort Measures: Not Applicable - Core Measures Any of the following diagnoses?: none Exam - Physical Exam Narrative exam: Not in cardiopulmonary distress. The patient appeared well nourished and normally developed. Vital signs as documented. Head exam is unremarkable. No scleral icterus . Neck is without jugular venous distension, thyromegaly, or carotid bruits. Lungs are clear to auscultation. Cardiac exam reveals regular rate and Rhythm. Abdominal exam reveals normal bowel sounds, nontender, no organomegaly. Extremities are nonedematous and both femoral and pedal pulses are normal. 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 No focal weakness. - Constitutional Vitals: Temp Pulse Resp BP Pulse Ox 98.3 F 87 16 115/70 98 04/23/20 06:53 04/23/20 06:53 04/23/20 06:53 04/23/20 06:53 04/23/20 06:53 Plan Activity: no restrictions Weight Bearing Status: Full Weight Bearing Diet: advance as tolerated Additional Instructions: Patient will follow with GI at [facility] Follow up with: PRIMARY CARE, [Primary Care Provider] - 3-5 Days Prescriptions: Amoxicillin/K Clav Tab [Augmentin 875 mg] 1 tab PO Q12HR #10 tab Hyoscyamine Subl [Levsin Sl 0.125 TAB] 0.125 mg SL Q4H PRN #30 tablet PRN Reason: Spasms
[2020-04-23] MEDS: HYDROmorphone 1 MG/1 ML INJ IV PRN (14:31)
[2020-04-23] MEDS: cefTRIAXone/NS 1 GM/50 ML 1 GM/50 ML BAG IV SCH (14:32)
== END 2020-04-23 16:00 | disposition home or self-care (01) | DRG 690 ==
LOC: ED 07:23 → 3B-SURG 16:23
PROVIDERS: ADMIT Internal Medicine; ATTEND Internal Medicine
DX: N39.0 Urinary tract infection, site not specified (principal); M46.1 Sacroiliitis, not elsewhere classified; R65.10 Systemic inflammatory response syndrome (SIRS) of non-infectious origin without acute organ dysfunction; R00.0 Tachycardia, unspecified; A09 Infectious gastroenteritis and colitis, unspecified
CPT/HCPCS: 36415; 71045; 74177; 80048; 80076; 81001; 82140; 83690; 84484; 84703; 85007; 85025; 87040; 87086; 93005; 96361; 96365; 96367; 96375; G0378; C9113; J0696; J1170; J2270; J2405; J2543; J7030; Q9967

== ENCOUNTER 2021-09-29 05:29 | Emergency (ER) | payer MEDICAID | END 2021-09-29 07:25 | disposition left against medical advice (07) | LOC: ED 05:29 | DX: Z00.00 Encounter for general adult medical examination without abnormal findings (principal); Z53.21 Procedure and treatment not carried out due to patient leaving prior to being seen by health care provider ==

== ENCOUNTER 2021-10-26 10:39 | Emergency (ER) | payer MEDICAID ==
[2021-10-26 11:00] VITALS: BP 122/65
[2021-10-26] MEDS ORDERED: SODIUM CHLORIDE 0.9% 1000 ML 1,000 ML IV ONE (13:15)
[2021-10-26] MEDS ORDERED: ONDANSETRON 4 MG/2 ML INJ IV ONE (13:15)
--- NOTE | 2021-10-26 13:52 | Emergency Department Report ---
- General Chief complaint: Weakness Stated complaint: WEAKNESS Source: patient Mode of arrival: Ambulatory Limitations: No Limitations - History of Present Illness Initial comments: 26-year-old female presents to the ED complaining female with nausea and vomiting and unable to tolerate fluid. Patient states that she is 7 weeks and is currently followed by [facility] for women. She states that she was seen in our clinic 6 days ago and had similar symptoms but symptoms has gotten worse. She states she was not treated at present time for symptom. Patient is 5 Para 3 A1. Patient denies any abdominal pain ,vaginal bleeding or vaginal discharge at present time. Patient is alert and oriented x3. No acute distress noted. No ill appearance noted. MD Complaint: generalized weakness Onset/Timin -: days(s) Severity scale (0 -10): 0 Consistency: intermittent Improves with: none Worsens with: none - Related Data Previous Rx's Medication Instructions Recorded Last Taken Type Phenazopyridine [Pyridium] 100 mg PO TID #6 tab 10/18/19 Unknown Rx Amoxicillin/K Clav Tab [Augmentin 1 tab PO Q12HR #10 tab 04/23/20 Unknown Rx 875 mg] Hyoscyamine Subl [Levsin Sl 0.125 0.125 mg SL Q4H PRN #30 tablet 04/23/20 Unknown Rx TAB] Ondansetron (Nf) [Zofran TAB] 8 mg PO Q8HR PRN 3 Days #12 tablet 10/26/21 Unknown Rx Allergies Allergy/AdvReac Type Severity Reaction Status Date / Time No Known Allergies Allergy Unverified 10/18/19 09:37 ED Review of Systems ROS: Stated complaint: WEAKNESS Other details as noted in HPI Constitutional: denies: chills, fever Eyes: denies: eye pain, eye discharge, vision change ENT: denies: ear pain, throat pain Respiratory: denies: cough, shortness of breath, wheezing Cardiovascular: denies: chest pain, palpitations Endocrine: no symptoms reported Gastrointestinal: denies: abdominal pain, nausea, diarrhea Genitourinary: denies: urgency, dysuria, discharge Musculoskeletal: denies: back pain, joint swelling, arthralgia Skin: denies: rash, lesions Neurological: denies: headache, weakness, paresthesias Psychiatric: denies: anxiety, depression Hematological/Lymphatic: denies: easy bleeding, easy bruising ED Past Medical Hx - Past Medical History Previous Medical History?: Yes Additional medical history: Vaginal delivery x 3 - Surgical History Past Surgical History?: Yes Additional Surgical History: x 1 - Social History Smoking Status: Never Smoker - Medications Home Medications: Home Medications Medication Instructions Recorded Confirmed Last Taken Type Phenazopyridine [Pyridium] 100 mg PO TID #6 tab 10/18/19 Unknown Rx Amoxicillin/K Clav Tab [Augmentin 1 tab PO Q12HR #10 tab 04/23/20 Unknown Rx 875 mg] Hyoscyamine Subl [Levsin Sl 0.125 0.125 mg SL Q4H PRN #30 tablet 04/23/20 Unknown Rx TAB] Ondansetron (Nf) [Zofran TAB] 8 mg PO Q8HR PRN 3 Days #12 tablet 10/26/21 Unknown Rx ED Physical Exam - General Limitations: No Limitations General appearance: alert, in no apparent distress - Head Head exam: Present: atraumatic, normocephalic - Eye Eye exam: Present: normal appearance - ENT ENT exam: Present: mucous membranes moist - Neck Neck exam: Present: normal inspection - Respiratory Respiratory exam: Present: normal lung sounds bilaterally. Absent: respiratory distress - Cardiovascular Cardiovascular Exam: Present: regular rate, normal rhythm. Absent: systolic murmur, diastolic murmur, rubs, gallop - GI/Abdominal GI/Abdominal exam: Present: soft, normal bowel sounds - Extremities Exam Extremities exam: Present: normal inspection - Back Exam Back exam: Present: normal inspection - Neurological Exam Neurological exam: Present: alert, oriented X3 - Psychiatric Psychiatric exam: Present: normal affect, normal mood - Skin Skin exam: Present: warm, dry, intact, normal color. Absent: rash ED Course Vital Signs 10/26/21 10:57 Temperature 98.9 F Pulse Rate 78 Respiratory 20 Rate Blood Pressure 122/65 [Right] O2 Sat by Pulse 100 Oximetry ED Medical Decision Making - Lab Data Result diagrams: 10/26/21 14:11 10/26/21 14:11 - Medical Decision Making 26-year-old female presents to the ED complaining female with nausea and vomiting and unable to tolerate fluid. Patient states that she is 7 weeks and is currently followed by [facility] for women. She states that she was seen in our clinic 6 days ago and had similar symptoms but symptoms has gotten worse. She states she was not treated at present time for symptom. Patient is 5 Para 3 A1. Patient denies any abdominal pain ,vaginal bleeding or vaginal discharge at present time. Patient is alert and oriented x3. No acute distress noted. No ill appearance noted. Physical examination is unremarkable. Given normal saline 1 L and Zofran 4 mg IV in the ED. 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 Rechecked the patient is resting quietly , comfortable and feeling better. I discussed the results of diagnostic study, my clinical impression and the plan for further treatment with the patient. Patient agrees with plan and discharge at this present time. All question addressed. I have given the patient instruction regarding a diagnosis ,expectation ,follow- up and return precaution. I explained to the patient that emergent condition may arise and to return to the ED for new worsen and any new persisting condition. I have explained the importance of following up with the primary care physician or referral physician listed below has instructed. The patient verbalized understanding of discharge instruction. Critical care attestation.: If time is entered above; I have spent that time in minutes in the direct care of this critically ill patient, excluding procedure time. ED Disposition Clinical Impression: Nausea and vomiting during Disposition: 01 HOME / SELF CARE / HOMELESS Is pt being admited?: No Does the pt Need Aspirin: No Condition: Stable Instructions: Nausea and Vomiting, Adult, Morning Sickness, [id number] Additional Instructions: Take medication has prescribed Continue to orally hydrate Follow-up with [facility] for women Prescriptions: Ondansetron (Nf) [Zofran TAB] 8 mg PO Q8HR PRN 3 Days #12 tablet PRN Reason: Nausea Forms: Work/School Release Form(ED) Time of Disposition: 15:30
[2021-10-26 13:53] LABS: Bacteria,Urine 1+ /HPF (Negative); Mucus,Urine FEW /HPF
[2021-10-26 13:56] LABS: Color,Urine Yellow (Yellow); HCG Qualitative,Urine Positive (Negative)
[2021-10-26 15:07] LABS: Hematocrit 35.6 % (30.3-42.9); Hemoglobin 11.6 gm/dl (10.1-14.3); Mean Corpuscular HGB Conc 33 % (30-34); Mean Corpuscular Volume 86 fl (79-97); Platelet Count 202 K/mm3 (140-440); Red Blood Count 4.13 M/mm3 (3.65-5.03); Red Cell Distribution Width 13.3 % (13.2-15.2)
[2021-10-26 15:24] LABS: Alanine Aminotransferase 15 units/L (7-56); Albumin 4.3 g/dL (3.9-5); BUN/Creatinine Ratio 10; Blood Urea Nitrogen 6 mg/dL (7-17); Calcium 8.4 mg/dL (8.4-10.2); Hemolysis Index 28
== END 2021-10-26 15:47 | disposition home or self-care (01) ==
LOC: ED 10:39
DX: O21.8 Other vomiting complicating pregnancy (principal); Z3A.01 Less than 8 weeks gestation of pregnancy
CPT/HCPCS: 36415; 80053; 81001; 81025; 85027; 96361; 96374; 99283; J2405; J7030